=== PATIENT | female | born 1970 | race Caucasian/White ===

== ENCOUNTER 2016-11-30 14:15 | Emergency (ER) | payer BC ==
[~2016-11-30] VITALS: Ht 162.6 cm; Wt 56.2 kg
[2016-11-30] MEDS ORDERED: AMPICILLIN 2 G VIAL IM ONE (15:30)
[2016-11-30] MEDS ORDERED: IBUPROFEN 600 MG TABLET PO ONE (15:30)
[2016-11-30] MEDS ORDERED: AMPICILLIN 2 G VIAL ONE (15:37)
[2016-11-30] MEDS ORDERED: IBUPROFEN 600 MG TABLET ONE (15:37)
[2016-11-30] MEDS ORDERED: AMPICILLIN 1 G VIAL ONE (15:37)
--- NOTE | 2016-11-30 16:08 | NUR ---
Patient discharged to home in stable conditon. Written and verbal after care instructions given. Patient verbalizes understanding of instructions.no reaction to antibiotic. pt walks in steady gait, no sign of distress. pt accompanied by family members.
[2016-11-30 16:09] VITALS: BP 142/81
== END 2016-11-30 16:22 | disposition home or self-care (01) ==
LOC: ER 14:15
DX: S61.251A Open bite of left index finger without damage to nail, initial encounter (principal); Z85.3 Personal history of malignant neoplasm of breast; W54.0XXA Bitten by dog, initial encounter; Y93.89 Activity, other specified; Y99.8 Other external cause status; Y92.89 Other specified places as the place of occurrence of the external cause
CPT/HCPCS: A4663; J0290